=== PATIENT | female | born 1930 | race Caucasian/White ===

== ENCOUNTER 2018-03-07 22:14 | Inpatient (IN) | payer OTHER ==
[~2018-03-07] VITALS: Ht 160 cm; Wt 54.4 kg
[2018-03-07 22:20] VITALS: BP 153/99
[2018-03-07] MEDS ORDERED: ALBUTEROL SULFATE/IPRATROPIU 3 ML SOL IH ONE (22:20)
[2018-03-07] MEDS ORDERED: methylPREDNISolone SS 125 MG in WATER STERILE 2 ML IV ONE (22:20)
[2018-03-07] MEDS ORDERED: NACL 0.9% 1,000 ML IV ONE (22:20)
[2018-03-07] MEDS ORDERED: LEVOFLOXACIN 750 MG/D5W PREMIX 150 ML IV ONE (22:55)
[2018-03-07 23:14] LABS: HEMATOCRIT 44.3 % (36-48); HEMOGLOBIN 13.9 g/dL (12.0-16.0); MEAN CORPUSCULAR HEMOGLOBIN 26 pg (27-31); MEAN CORPUSCULAR HGB CONC 31 g/dL (33-37); MEAN CORPUSCULAR VOLUME 83.7 fL (80-94); PLATELET COUNT (AUTO) 332 K/uL (140-450); RED BLOOD CELL COUNT(AUTO) 5.29 MIL/uL (4.20-5.40); RED CELL DISTRIBUTION WIDTH 16.3 % (11.6-13.7); WHITE BLOOD COUNT (AUTO) 12.1 K/uL (4.8-10.8)
[2018-03-07 23:23] LABS: ANION GAP 16.3 (8-16); CARBON DIOXIDE 26.2 mmol/L (21-32); CHLORIDE 100 mmol/L (98-107); CREATININE 1.8 mg/dL (0.6-1.3); GLUCOSE 227 mg/dL (74-106); POTASSIUM 4.5 mmol/L (3.5-5.1); SODIUM SERUM 138 mmol/L (136-145); UREA NITROGEN, BLOOD 25 mg/dL (7-18)
[2018-03-07 23:28] LABS: ALBUMIN 4.3 g/dL (3.4-5.0); ASPARTATE AMINOTRANSFERASE 27 U/L (15-37); LIPASE 209 U/L (73-393); TOTAL BILIRUBIN 0.4 mg/dL (0.0-1.0)
[2018-03-07 23:39] LABS: PROTHROMBIN TIME 11.3 secs (10.8-13.4)
[2018-03-07 23:41] LABS: EOSINOPHILS % (MANUAL) 3 % (0-4); LYMPHOCYTES % (MANUAL) 17 % (20-46); MONOCYTES % (MANUAL) 4 % (5-12)
[2018-03-07] MEDS ORDERED: NACL 0.9% 2,000 ML IV ONE (23:50)
[2018-03-08] VITALS (7 sets, daily range): BP systolic 125–172; BP diastolic 50–73
[2018-03-08 01:19] LABS: APPEARANCE,URINE CLEAR (CLEAR); BILIRUBIN,URINE NEGATIVE (NEGATIVE); BLOOD, URINE TRACE-I (NEGATIVE); COLOR,URINE YELLOW (YELLOW); LEUKOCYTE ESTERASE ,URINE 2+ (NEGATIVE); NITRITE, URINE NEGATIVE (NEGATIVE); PH,URINE 6.5 (5.0-9.0); UGLUCOSE NEGATIVE (NEGATIVE)
[2018-03-08] MEDS: NACL 0.9% 1,000 ML IV SCH (01:22)
[2018-03-08] MEDS ORDERED: DOCUSATE SODIUM 100 MG GELCAP PO PRN (01:25)
[2018-03-08] MEDS ORDERED: ONDANSETRON 4 MG/2 ML VIAL IM/IVP PRN (01:25)
[2018-03-08] MEDS ORDERED: ACETAMINOPHEN 325 MG TAB PO PRN (01:25)
[2018-03-08 01:34] LABS: RBC,URINE 0-5 (RARE) /HPF (0-5)
[2018-03-08] MEDS ORDERED: FURO-570 PO (02:12)
[2018-03-08] MEDS ORDERED: DIGO0.122 PO (02:12)
[2018-03-08] MEDS ORDERED: RIVA20TA PO (02:12)
[2018-03-08] MEDS ORDERED: DOCU-474 PO (02:12)
[2018-03-08] MEDS ORDERED: QUET50TA PO (02:12)
[2018-03-08] MEDS ORDERED: DONE10TA10 PO (02:12)
[2018-03-08] MEDS ORDERED: MEMA10TA PO (02:12)
[2018-03-08] MEDS ORDERED: ATOR10TA PO (02:12)
[2018-03-08] MEDS ORDERED: PAM25 PO (02:12)
[2018-03-08] MEDS ORDERED: CARV3.12 PO ×2 (02:12→03:19)
[2018-03-08] MEDS ORDERED: POTA10TE30 PO (02:12)
[2018-03-08] MEDS ORDERED: DILTIAZEM 25 MG/5 ML VIAL IVP ONE (02:45)
[2018-03-08 02:55] LABS: CHOL/HDL RATIO 3.2 (1-4.5); FREE T4 (FREE THYROXINE) 0.94 ng/dL (0.76-1.46); MAGNESIUM 2.5 mg/dL (1.8-2.4); PHOSPHORUS 5.8 mg/dL (2.5-4.9); THYROID STIMULATING HORMONE 9.12 uIU/mL (0.34-3.74)
[2018-03-08] MEDS ORDERED: LORazepam 2 MG/ML VIAL IVP ONE (03:05)
[2018-03-08] MEDS ORDERED: QUEtiapine FUMARATE 25 MG TAB PO ONE (03:05)
[2018-03-08] MEDS ORDERED: LORazepam 2 MG/ML VIAL ONE (03:12)
[2018-03-08] MEDS ORDERED: CARVEDILOL 3.125 MG TAB PO ONE (03:15)
[2018-03-08 03:47] LABS: BARBITURATE, URINE NEG. ng/ml (NEG <=200); BENZODIAZEPINE, URINE NEG. ng/mL (NEG <=200); CANNABINOID, URINE NEG. ng/mL (NEG <=50); COCAINE, URINE NEG. ng/mL (NEG <=300); OPIATE, URINE NEG. ng/mL (NEG <=2000); PHENCYCLIDINE SCREEN,URINE NEG. ng/mL (NEG <=25)
[2018-03-08] MEDS ORDERED: LEVOTHYROXINE 0.05 MG TAB PO SCH (06:30)
[2018-03-08] MEDS: ALBUTEROL SULFATE/IPRATROPIU 3 ML SOL IH SCH ×3 (06:31→19:53)
[2018-03-08 07:08] LABS: BASOPHILS % (AUTO) 0.1 % (0.0-2.0); EOSINOPHILS % (AUTO) 0.1 % (0.0-4.0); HEMATOCRIT 38.4 % (36-48); HEMOGLOBIN 12.5 g/dL (12.0-16.0); LYMPHOCYTES # (AUTO) 0.5 K/uL (2.5-16.5); LYMPHOCYTES % (AUTO) 4.3 % (20.5-51.1); MEAN CORPUSCULAR HEMOGLOBIN 27 pg (27-31); MEAN CORPUSCULAR HGB CONC 33 g/dL (33-37); MEAN CORPUSCULAR VOLUME 83.9 fL (80-94); MONOCYTES # (AUTO) 0.2 K/uL (0.8-1.0); MONOCYTES % (AUTO) 1.6 % (1.7-9.3); NEUTROPHILS # (AUTO) 10.3 K/uL (1.8-7.7); NEUTROPHILS % (AUTO) 93.9 % (42.2-75.2); PLATELET COUNT (AUTO) 242 K/uL (140-450); RED BLOOD CELL COUNT(AUTO) 4.57 MIL/uL (4.20-5.40); RED CELL DISTRIBUTION WIDTH 16.5 % (11.6-13.7); WHITE BLOOD COUNT (AUTO) 10.9 K/uL (4.8-10.8)
[2018-03-08 07:27] LABS: MAGNESIUM 2.3 mg/dL (1.8-2.4); PHOSPHORUS 2.6 mg/dL (2.5-4.9)
[2018-03-08 07:51] LABS: ANION GAP 15.8 (8-16); CARBON DIOXIDE 24.6 mmol/L (21-32); CHLORIDE 104 mmol/L (98-107); CREATININE 1.6 mg/dL (0.6-1.3); GLUCOSE 187 mg/dL (74-106); POTASSIUM 4.4 mmol/L (3.5-5.1); SODIUM SERUM 140 mmol/L (136-145); UREA NITROGEN, BLOOD 24 mg/dL (7-18)
[2018-03-08] MEDS ORDERED: FUROSEMIDE 40 MG/4 ML VIAL IVP SCH ×2 (08:15→13:30)
[2018-03-08] MEDS ORDERED: LEVOFLOXACIN 250 MG TAB PO SCH (09:00)
[2018-03-08] MEDS: NORTRIPTYLINE 25 MG CAP PO SCH (09:28)
[2018-03-08] MEDS: DONEPEZIL 10 MG TAB PO SCH (09:28)
[2018-03-08] MEDS: MEMANTINE 10 MG TAB PO SCH (09:29)
[2018-03-08] MEDS: DIGOXIN 0.125 MG TAB PO SCH (09:29)
[2018-03-08] MEDS: CARVEDILOL 3.125 MG TAB PO SCH ×2 (09:30→20:42)
[2018-03-08] MEDS: RIVAROXABAN 10 MG TAB PO SCH (09:32)
[2018-03-08] MEDS: FUROSEMIDE 40 MG TAB PO SCH (10:55)
[2018-03-08] MEDS: metroNIDAZOLE 500 MG/NS PREMIX 100 ML IV SCH ×2 (12:30→20:43)
[2018-03-08] MEDS: QUEtiapine FUMARATE 25 MG TAB PO SCH (20:42)
[2018-03-08] MEDS ORDERED: ATORVASTATIN 20 MG TAB PO SCH (21:00)
[2018-03-09] VITALS: BP 135/90
[2018-03-09] MEDS: ALBUTEROL SULFATE/IPRATROPIU 3 ML SOL IH SCH ×4 (00:55→19:38)
[2018-03-09] MEDS: NACL 0.9% 1,000 ML IV SCH (01:22)
[2018-03-09 04:00] VITALS: BP 136/66
[2018-03-09] MEDS: metroNIDAZOLE 500 MG/NS PREMIX 100 ML IV SCH ×3 (05:48→21:34)
[2018-03-09] MEDS: LEVOTHYROXINE 0.025 MG TAB PO SCH (05:49)
[2018-03-09 07:16] LABS: ANION GAP 14.1 (8-16); CARBON DIOXIDE 26.8 mmol/L (21-32); CHLORIDE 107 mmol/L (98-107); CREATININE 1.4 mg/dL (0.6-1.3); GLUCOSE 130 mg/dL (74-106); POTASSIUM 3.9 mmol/L (3.5-5.1); SODIUM SERUM 144 mmol/L (136-145); UREA NITROGEN, BLOOD 31 mg/dL (7-18)
[2018-03-09 07:17] LABS: BASOPHILS # (AUTO) 0.1 K/uL (0.00-0.22); BASOPHILS % (AUTO) 0.6 % (0.0-2.0); EOSINOPHILS # (AUTO) 0.1 K/uL (0-0.4); EOSINOPHILS % (AUTO) 0.8 % (0.0-4.0); HEMATOCRIT 36.1 % (36-48); HEMOGLOBIN 11.7 g/dL (12.0-16.0); LYMPHOCYTES # (AUTO) 2.1 K/uL (2.5-16.5); LYMPHOCYTES % (AUTO) 14.7 % (20.5-51.1); MEAN CORPUSCULAR HEMOGLOBIN 27 pg (27-31); MEAN CORPUSCULAR HGB CONC 32 g/dL (33-37); MEAN CORPUSCULAR VOLUME 83.2 fL (80-94); MONOCYTES % (AUTO) 7.1 % (1.7-9.3); NEUTROPHILS # (AUTO) 10.9 K/uL (1.8-7.7); NEUTROPHILS % (AUTO) 76.8 % (42.2-75.2); PLATELET COUNT (AUTO) 251 K/uL (140-450); RED BLOOD CELL COUNT(AUTO) 4.34 MIL/uL (4.20-5.40); RED CELL DISTRIBUTION WIDTH 16.4 % (11.6-13.7); WHITE BLOOD COUNT (AUTO) 14.1 K/uL (4.8-10.8)
[2018-03-09 07:25] LABS: MAGNESIUM 2.4 mg/dL (1.8-2.4); PHOSPHORUS 3.1 mg/dL (2.5-4.9)
[2018-03-09 08:00] VITALS: BP 137/89
[2018-03-09] MEDS: LACTOBACILLUS RHAMNOSUS GG 1 EACH CAP PO SCH (08:59)
[2018-03-09] MEDS: CARVEDILOL 3.125 MG TAB PO SCH ×2 (08:59→21:34)
[2018-03-09] MEDS: NORTRIPTYLINE 25 MG CAP PO SCH (08:59)
[2018-03-09] MEDS: MEMANTINE 10 MG TAB PO SCH (09:00)
[2018-03-09] MEDS: DIGOXIN 0.125 MG TAB PO SCH (09:00)
[2018-03-09] MEDS: DONEPEZIL 10 MG TAB PO SCH (09:00)
[2018-03-09] MEDS: FUROSEMIDE 40 MG TAB PO SCH (09:01)
[2018-03-09] MEDS: RIVAROXABAN 10 MG TAB PO SCH (09:03)
[2018-03-09] MEDS ORDERED: CARV3.12 PO (11:21)
[2018-03-09] MEDS ORDERED: PAM25 PO (11:29)
[2018-03-09] MEDS ORDERED: ISOS10TA9 PO (11:29)
[2018-03-09] MEDS ORDERED: MEMA10TA PO (11:29)
[2018-03-09 12:00] VITALS: BP 132/57
[2018-03-09 16:00] VITALS: BP 139/72
[2018-03-09] MEDS ORDERED: FUROSEMIDE 40 MG TAB PO SCH (17:00)
[2018-03-09 20:31] VITALS: BP 143/88
[2018-03-09] MEDS: QUEtiapine FUMARATE 25 MG TAB PO SCH (21:34)
[2018-03-10] VITALS (7 sets, daily range): BP systolic 109–151; BP diastolic 61–90
[2018-03-10] MEDS: NACL 0.9% 1,000 ML IV SCH (01:22)
[2018-03-10] MEDS: ALBUTEROL SULFATE/IPRATROPIU 3 ML SOL IH SCH (01:29)
[2018-03-10] MEDS: LEVOTHYROXINE 0.025 MG TAB PO SCH (05:47)
[2018-03-10] MEDS: metroNIDAZOLE 500 MG/NS PREMIX 100 ML IV SCH ×3 (05:47→20:41)
[2018-03-10 06:10] LABS: T4 (THYROXINE) 7.2 ug/dL (4.5-12.0)
[2018-03-10] MEDS ORDERED: BENZOCAINE/MENTHOL 1 LOZ MM PRN (06:25)
[2018-03-10 07:30] LABS: BASOPHILS # (AUTO) 0.1 K/uL (0.00-0.22); BASOPHILS % (AUTO) 0.6 % (0.0-2.0); EOSINOPHILS # (AUTO) 0.4 K/uL (0-0.4); EOSINOPHILS % (AUTO) 3.1 % (0.0-4.0); HEMATOCRIT 38.6 % (36-48); HEMOGLOBIN 12.2 g/dL (12.0-16.0); LYMPHOCYTES # (AUTO) 2.2 K/uL (2.5-16.5); LYMPHOCYTES % (AUTO) 16.7 % (20.5-51.1); MEAN CORPUSCULAR HEMOGLOBIN 26 pg (27-31); MEAN CORPUSCULAR HGB CONC 32 g/dL (33-37); MEAN CORPUSCULAR VOLUME 83.3 fL (80-94); MONOCYTES # (AUTO) 1.3 K/uL (0.8-1.0); MONOCYTES % (AUTO) 9.9 % (1.7-9.3); NEUTROPHILS # (AUTO) 9.3 K/uL (1.8-7.7); NEUTROPHILS % (AUTO) 69.7 % (42.2-75.2); PLATELET COUNT (AUTO) 275 K/uL (140-450); RED BLOOD CELL COUNT(AUTO) 4.63 MIL/uL (4.20-5.40); RED CELL DISTRIBUTION WIDTH 16.9 % (11.6-13.7); WHITE BLOOD COUNT (AUTO) 13.3 K/uL (4.8-10.8)
[2018-03-10] MEDS ORDERED: FUROSEMIDE 40 MG/4 ML VIAL IVP SCH (07:30)
[2018-03-10 08:01] LABS: ANION GAP 16.5 (8-16); CARBON DIOXIDE 27.1 mmol/L (21-32); CHLORIDE 105 mmol/L (98-107); CREATININE 1.3 mg/dL (0.6-1.3); GLUCOSE 130 mg/dL (74-106); POTASSIUM 3.6 mmol/L (3.5-5.1); SODIUM SERUM 145 mmol/L (136-145); UREA NITROGEN, BLOOD 29 mg/dL (7-18)
[2018-03-10 08:05] LABS: MAGNESIUM 2.4 mg/dL (1.8-2.4); PHOSPHORUS 2.9 mg/dL (2.5-4.9)
[2018-03-10] MEDS: LACTOBACILLUS RHAMNOSUS GG 1 EACH CAP PO SCH (08:40)
[2018-03-10] MEDS: DONEPEZIL 10 MG TAB PO SCH (08:41)
[2018-03-10] MEDS: NORTRIPTYLINE 25 MG CAP PO SCH (08:41)
[2018-03-10] MEDS: CARVEDILOL 3.125 MG TAB PO SCH ×2 (08:41→20:41)
[2018-03-10] MEDS: MEMANTINE 10 MG TAB PO SCH ×2 (08:42→20:41)
[2018-03-10] MEDS: DIGOXIN 0.125 MG TAB PO SCH (08:42)
[2018-03-10] MEDS: RIVAROXABAN 10 MG TAB PO SCH (08:44)
[2018-03-10] MEDS: LEVOFLOXACIN 750 MG/D5W PREMIX 150 ML IV SCH (09:37)
[2018-03-10] MEDS ORDERED: CARV3.12 PO (11:08)
[2018-03-10] MEDS: QUEtiapine FUMARATE 25 MG TAB PO SCH (20:41)
[2018-03-10] MEDS ORDERED: ZOLPIDEM 5 MG TAB ONE (22:55)
[2018-03-11] MEDS: NACL 0.9% 1,000 ML IV SCH (01:22)
[2018-03-11] MEDS: ALBUTEROL SULFATE/IPRATROPIU 3 ML SOL IH PRN ×2 (01:35→20:11)
[2018-03-11 03:44] VITALS: BP 147/72
[2018-03-11] MEDS: LEVOTHYROXINE 0.025 MG TAB PO SCH (05:31)
[2018-03-11] MEDS: metroNIDAZOLE 500 MG/NS PREMIX 100 ML IV SCH ×3 (05:31→21:00)
[2018-03-11 07:32] LABS: CARBON DIOXIDE 28.7 mmol/L (21-32); CHLORIDE 107 mmol/L (98-107); CREATININE 1.2 mg/dL (0.6-1.3); GLUCOSE 140 mg/dL (74-106); POTASSIUM 3.7 mmol/L (3.5-5.1); SODIUM SERUM 146 mmol/L (136-145); UREA NITROGEN, BLOOD 32 mg/dL (7-18)
[2018-03-11 07:33] LABS: BASOPHILS # (AUTO) 0.1 K/uL (0.00-0.22); BASOPHILS % (AUTO) 0.6 % (0.0-2.0); EOSINOPHILS # (AUTO) 0.4 K/uL (0-0.4); EOSINOPHILS % (AUTO) 3.9 % (0.0-4.0); HEMATOCRIT 35.6 % (36-48); HEMOGLOBIN 11.3 g/dL (12.0-16.0); LYMPHOCYTES # (AUTO) 1.7 K/uL (2.5-16.5); LYMPHOCYTES % (AUTO) 15.7 % (20.5-51.1); MEAN CORPUSCULAR HEMOGLOBIN 27 pg (27-31); MEAN CORPUSCULAR HGB CONC 32 g/dL (33-37); MONOCYTES % (AUTO) 9.4 % (1.7-9.3); NEUTROPHILS # (AUTO) 7.5 K/uL (1.8-7.7); NEUTROPHILS % (AUTO) 70.4 % (42.2-75.2); PLATELET COUNT (AUTO) 220 K/uL (140-450); RED BLOOD CELL COUNT(AUTO) 4.24 MIL/uL (4.20-5.40); RED CELL DISTRIBUTION WIDTH 16.9 % (11.6-13.7); WHITE BLOOD COUNT (AUTO) 10.7 K/uL (4.8-10.8)
[2018-03-11 07:41] LABS: MAGNESIUM 2.4 mg/dL (1.8-2.4)
[2018-03-11 08:00] VITALS: BP 143/71
[2018-03-11] MEDS ORDERED: MEMANTINE 10 MG TAB PO SCH (09:00)
[2018-03-11] MEDS: DIGOXIN 0.125 MG TAB PO SCH (10:34)
[2018-03-11] MEDS: LACTOBACILLUS RHAMNOSUS GG 1 EACH CAP PO SCH (10:34)
[2018-03-11] MEDS: DONEPEZIL 10 MG TAB PO SCH (10:35)
[2018-03-11] MEDS: SPIRONOLACTONE 25 MG TAB PO SCH (10:35)
[2018-03-11] MEDS: RIVAROXABAN 10 MG TAB PO SCH (10:36)
[2018-03-11] MEDS: CARVEDILOL 3.125 MG TAB PO SCH ×2 (10:37→21:00)
[2018-03-11] MEDS: QUEtiapine FUMARATE 25 MG TAB PO SCH ×2 (10:37→21:00)
[2018-03-11] MEDS: MEMANTINE 10 MG TAB PO SCH ×2 (10:38→21:00)
[2018-03-11] MEDS: NORTRIPTYLINE 25 MG CAP PO SCH (10:38)
[2018-03-11] MEDS: FUROSEMIDE 40 MG/4 ML VIAL IVP SCH (10:40)
[2018-03-11] MEDS: LISINOPRIL 5 MG TAB PO SCH (10:40)
[2018-03-11 12:00] VITALS: BP 108/68
[2018-03-11 16:00] VITALS: BP 143/84
[2018-03-11 20:04] VITALS: BP 134/74
[2018-03-11] MEDS ORDERED: ZOLPIDEM 5 MG TAB PO SCH (21:00)
[2018-03-11 23:50] VITALS: BP 111/58
[2018-03-12] MEDS: NACL 0.9% 1,000 ML IV SCH (01:22)
[2018-03-12 04:27] VITALS: BP 124/52
[2018-03-12] MEDS: metroNIDAZOLE 500 MG/NS PREMIX 100 ML IV SCH ×2 (04:36→12:26)
[2018-03-12] MEDS: guaiFENesin DM 200/20 MG-10 ML 10 ML UDC PO PRN ×2 (05:28→13:44)
[2018-03-12] MEDS: LEVOTHYROXINE 0.025 MG TAB PO SCH (05:28)
[2018-03-12 06:15] LABS: BASOPHILS # (AUTO) 0.1 K/uL (0.00-0.22); BASOPHILS % (AUTO) 0.6 % (0.0-2.0); EOSINOPHILS # (AUTO) 0.5 K/uL (0-0.4); HEMOGLOBIN 11.4 g/dL (12.0-16.0); LYMPHOCYTES # (AUTO) 1.3 K/uL (2.5-16.5); LYMPHOCYTES % (AUTO) 13.6 % (20.5-51.1); MEAN CORPUSCULAR HEMOGLOBIN 27 pg (27-31); MEAN CORPUSCULAR HGB CONC 32 g/dL (33-37); MEAN CORPUSCULAR VOLUME 84.2 fL (80-94); MONOCYTES # (AUTO) 0.9 K/uL (0.8-1.0); MONOCYTES % (AUTO) 9.1 % (1.7-9.3); NEUTROPHILS % (AUTO) 71.7 % (42.2-75.2); PLATELET COUNT (AUTO) 234 K/uL (140-450); RED BLOOD CELL COUNT(AUTO) 4.28 MIL/uL (4.20-5.40); RED CELL DISTRIBUTION WIDTH 16.9 % (11.6-13.7); WHITE BLOOD COUNT (AUTO) 9.8 K/uL (4.8-10.8)
[2018-03-12] MEDS: ALBUTEROL SULFATE/IPRATROPIU 3 ML SOL IH PRN (06:48)
[2018-03-12 06:50] LABS: CARBON DIOXIDE 30.9 mmol/L (21-32); CHLORIDE 107 mmol/L (98-107); CREATININE 1.2 mg/dL (0.6-1.3); GLUCOSE 136 mg/dL (74-106); POTASSIUM 3.9 mmol/L (3.5-5.1); SODIUM SERUM 145 mmol/L (136-145); UREA NITROGEN, BLOOD 29 mg/dL (7-18)
[2018-03-12 06:54] LABS: MAGNESIUM 2.4 mg/dL (1.8-2.4); PHOSPHORUS 3.2 mg/dL (2.5-4.9)
[2018-03-12 08:00] VITALS: BP 131/65
[2018-03-12] MEDS: LACTOBACILLUS RHAMNOSUS GG 1 EACH CAP PO SCH (08:43)
[2018-03-12] MEDS: QUEtiapine FUMARATE 25 MG TAB PO SCH (08:43)
[2018-03-12] MEDS: FUROSEMIDE 40 MG/4 ML VIAL IVP SCH (08:43)
[2018-03-12] MEDS: NORTRIPTYLINE 25 MG CAP PO SCH (08:43)
[2018-03-12] MEDS: DONEPEZIL 10 MG TAB PO SCH (08:44)
[2018-03-12] MEDS: MEMANTINE 10 MG TAB PO SCH (08:45)
[2018-03-12] MEDS: DIGOXIN 0.125 MG TAB PO SCH (08:45)
[2018-03-12] MEDS: LISINOPRIL 5 MG TAB PO SCH (08:45)
[2018-03-12] MEDS: SPIRONOLACTONE 25 MG TAB PO SCH (08:46)
[2018-03-12] MEDS: CARVEDILOL 3.125 MG TAB PO SCH (08:46)
[2018-03-12] MEDS: RIVAROXABAN 10 MG TAB PO SCH (08:46)
[2018-03-12] MEDS: LEVOFLOXACIN 750 MG/D5W PREMIX 150 ML IV SCH (09:16)
[2018-03-12] MEDS ORDERED: SPIR50TA PO (09:52)
[2018-03-12] MEDS ORDERED: METR500S14 IV (09:55)
[2018-03-12] MEDS ORDERED: LEVO750T2 IV (09:56)
[2018-03-12] MEDS ORDERED: LEVO0.0211 PO (10:01)
[2018-03-12 12:00] VITALS: BP 139/64
== END 2018-03-12 14:05 | DRG 871 ==
LOC: MED 22:14 → MTU 03-08 01:27
PROVIDERS: ADMIT General Practice; ATTEND General Practice
PROC: 5A09357 Assistance with Respiratory Ventilation, Less than 24 Consecutive Hours, Continuous Positive Airway Pressure (ICD-10-PCS; principal; 2018-03-08)
DX: A41.9 Sepsis, unspecified organism (principal); J69.0 Pneumonitis due to inhalation of food and vomit; N17.0 Acute kidney failure with tubular necrosis; I50.43 Acute on chronic combined systolic (congestive) and diastolic (congestive) heart failure; J96.01 Acute respiratory failure with hypoxia; N39.0 Urinary tract infection, site not specified; I13.0 Hypertensive heart and chronic kidney disease with heart failure and stage 1 through stage 4 chronic kidney disease, or unspecified chronic kidney disease; J44.1 Chronic obstructive pulmonary disease with (acute) exacerbation; N18.4 Chronic kidney disease, stage 4 (severe); E87.0 Hyperosmolality and hypernatremia; R65.20 Severe sepsis without septic shock; F32.9 Major depressive disorder, single episode, unspecified; F41.9 Anxiety disorder, unspecified; E03.9 Hypothyroidism, unspecified; E78.5 Hyperlipidemia, unspecified; F03.90 Unspecified dementia, unspecified severity, without behavioral disturbance, psychotic disturbance, mood disturbance, and anxiety; I48.91 Unspecified atrial fibrillation; R73.9 Hyperglycemia, unspecified; F43.9 Reaction to severe stress, unspecified; E83.39 Other disorders of phosphorus metabolism; E83.41 Hypermagnesemia; R31.9 Hematuria, unspecified; K59.00 Constipation, unspecified; D64.9 Anemia, unspecified; E83.51 Hypocalcemia; Z86.73 Personal history of transient ischemic attack (TIA), and cerebral infarction without residual deficits; Z95.810 Presence of automatic (implantable) cardiac defibrillator; Z88.6 Allergy status to analgesic agent; Z91.041 Radiographic dye allergy status; Z88.0 Allergy status to penicillin; Z88.8 Allergy status to other drugs, medicaments and biological substances; Z91.018 Allergy to other foods; Z90.49 Acquired absence of other specified parts of digestive tract; Z98.42 Cataract extraction status, left eye; Z98.41 Cataract extraction status, right eye; Z90.710 Acquired absence of both cervix and uterus; Z79.899 Other long term (current) drug therapy; R73.03 Prediabetes
CPT/HCPCS: 36415; 36600; 71045; 71046; 76604; 80048; 80053; 80305; 81001; 82150; 82803; 83036; 83605; 83690; 83735; 83880; 84100; 84436; 84439; 84443; 84479; 84484; 85025; 85610; 85730; 87040; 87081; 87086; 87804; 92610; 93005; 94640; 94660; 96361; 96365; 97110; 97116; 97530; 99291; C1758; J1940; J1956; J2060; J2405; J2930; J3490; J7030; J7620; Q0092